=== PATIENT | female | born 1975 | race Caucasian/White ===

== ENCOUNTER 2017-07-08 15:22 | Inpatient (IN) | payer MEDICARE, OTHER ==
[~2017-07-08] VITALS: Ht 160 cm; Wt 110.3 kg
[2017-07-08 15:47] LABS: GLUCOSE,POINT OF CARE 90 MG/DL (70-110)
[2017-07-08] MEDS ORDERED: DIVA500T52 PO (16:01)
[2017-07-08] MEDS ORDERED: BENZ2TAB10 PO (16:01)
[2017-07-08] MEDS ORDERED: FOLI1 PO (16:01)
[2017-07-08] MEDS ORDERED: SIMV-261 PO (16:01)
[2017-07-08] MEDS ORDERED: METO50 PO (16:01)
[2017-07-08] MEDS ORDERED: OS500 PO (16:01)
[2017-07-08] MEDS ORDERED: CLOZ100 PO (16:01)
[2017-07-08 16:50] LABS: BASOPHILS % (AUTO) 0.5 % (0.0-2.0); EOSINOPHILS % (AUTO) 0.6 % (1.0-6.0); HEMATOCRIT 39.1 % (36-46); HEMOGLOBIN 13.3 g/dL (12.0-16.0); LYMPHOCYTES # (AUTO) 4.2 K/uL (1.0-4.8); LYMPHOCYTES % (AUTO) 37.9 % (22.0-44.0); MEAN CORPUSCULAR HEMOGLOBIN 31.6 pg (26.0-34.0); MEAN CORPUSCULAR VOLUME 93 fL (80-100); MONOCYTES # (AUTO) 0.8 K/uL (0.1-1.0); MONOCYTES % (AUTO) 7.2 % (2.0-9.0); NEUTROPHILS % (AUTO) 53.8 % (40.0-70.0); PLATELET COUNT (AUTO) 342 K/uL (150-450); RED BLOOD CELL COUNT(AUTO) 4.21 MIL/uL (4.00-5.20); RED CELL DISTRIBUTION WIDTH 13.4 % (11.5-14.5); WHITE BLOOD COUNT (AUTO) 11.1 K/uL (4.5-11.0)
[2017-07-08 16:59] LABS: CALCIUM, TOTAL 9.4 mg/dL (8.8-10.5); CREATININE 1.02 mg/dL (0.60-1.30); POTASSIUM 4.2 mmol/L (3.5-5.1)
[2017-07-08 17:05] LABS: ALBUMIN 3.5 g/dL (3.4-5.0); BILIRUBIN,TOTAL 0.4 mg/dL (0.1-1.0); TOTAL PROTEIN, SERUM 7.1 g/dL (6.4-8.2)
[2017-07-08] MEDS ORDERED: SODIUM CHLORIDE 0.9% 1,000 ML IV ONE (18:15)
[2017-07-08 18:34] LABS: APPEARANCE,URINE CLOUDY (CLEAR); GLUCOSE, URINE (UA) NEGATIVE (NEGATIVE); KETONES,URINE 15 mg/dL (NEGATIVE); OCCULT BLOOD,URINE NEGATIVE (NEGATIVE); PROTEIN,URINE NEGATIVE (NEGATIVE)
[2017-07-08 18:47] LABS: ADD UA MICROSCOPIC YES; LEUKOCYTE ESTERASE ,URINE TRACE (NEGATIVE); RBC,URINE None Seen /HPF (0-2)
[2017-07-08 18:48] LABS: SQUAMOUS EPITHELIAL CELL,UR Moderate /LPF (None Seen)
[2017-07-08] MEDS ORDERED: ONDANSETRON HCL 4 MG/2 ML VIAL IVP PRN (19:00)
[2017-07-08] MEDS ORDERED: 0.9% SODIUM CHLORIDE 10 ML SYRINGE IVP PRN (19:00)
[2017-07-08] MEDS ORDERED: ACETAMINOPHEN 325 MG TABLET PO PRN (19:00)
[2017-07-08] MEDS ORDERED: CIPROFLOXACIN 400 MG/D5% WATER 200 ML IV ONE (20:30)
[2017-07-08 21:20] VITALS: BP 104/68
[2017-07-08] MEDS ORDERED: SODIUM CHLORIDE 0.9% 500 ML IV ONE (21:26)
[2017-07-08 23:17] VITALS: BP 112/57
[2017-07-09 05:28] VITALS: BP 120/72
[2017-07-09 07:22] VITALS: BP 109/55
[2017-07-09 11:17] VITALS: BP 122/69
[2017-07-09] MEDS ORDERED: DOCU250C91 PO (12:47)
[2017-07-09] MEDS ORDERED: ADV100 IH (12:47)
[2017-07-09] MEDS ORDERED: TOLT4CAP13 PO (12:47)
[2017-07-09 15:30] VITALS: BP 107/65
[2017-07-09] MEDS ORDERED: OxyCODONE HCL/ACETAMINOPHEN 5-325 MG TABLET PO PRN ×2 (19:30)
[2017-07-09] MEDS ORDERED: 0.9% SODIUM CHLORIDE 10 ML SYRINGE IVP PRN (19:30)
[2017-07-09 19:48] VITALS: BP 119/68
[2017-07-09] MEDS: DOCUSATE SODIUM 100 MG CAPSULE PO SCH (20:50)
[2017-07-09] MEDS: CefTRIAXone 1 GM/DEXTROSE 50 ML IV SCH (20:50)
[2017-07-09] MEDS: PANTOPRAZOLE SODIUM 40 MG/VIAL IVP SCH (20:50)
[2017-07-09 23:19] VITALS: BP 117/69
[2017-07-10 04:48] VITALS: BP 115/59
[2017-07-10 06:50] LABS: ANION GAP 10 mmol/L (8-16); CALCIUM, TOTAL 8.6 mg/dL (8.8-10.5); CARBON DIOXIDE 26 mmol/L (22-29); CHLORIDE 104 mmol/L (98-107); CREATININE 0.99 mg/dL (0.60-1.30); GLOMERULAR FILTR. RATE CALC > 60 mL/min (>60); POTASSIUM 3.5 mmol/L (3.5-5.1); SODIUM SERUM 140 mmol/L (136-145); UREA NITROGEN, BLOOD 12 mg/dL (7-18)
[2017-07-10 07:05] LABS: BASOPHILS % (AUTO) 0.3 % (0.0-2.0); EOSINOPHILS % (AUTO) 0.8 % (1.0-6.0); HEMATOCRIT 38.5 % (36-46); HEMOGLOBIN 13.1 g/dL (12.0-16.0); LYMPHOCYTES # (AUTO) 3.5 K/uL (1.0-4.8); LYMPHOCYTES % (AUTO) 36.5 % (22.0-44.0); MEAN CORPUSCULAR HGB CONC 34.1 G/dL (31.0-37.0); MEAN CORPUSCULAR VOLUME 94 fL (80-100); MONOCYTES # (AUTO) 0.7 K/uL (0.1-1.0); MONOCYTES % (AUTO) 6.8 % (2.0-9.0); NEUTROPHILS # (AUTO) 5.4 K/uL (1.8-7.7); NEUTROPHILS % (AUTO) 55.6 % (40.0-70.0); PLATELET COUNT (AUTO) 316 K/uL (150-450); RED CELL DISTRIBUTION WIDTH 13.9 % (11.5-14.5); WHITE BLOOD COUNT (AUTO) 9.7 K/uL (4.5-11.0)
[2017-07-10 07:09] VITALS: BP 168/64
[2017-07-10] MEDS: DOCUSATE SODIUM 100 MG CAPSULE PO SCH ×2 (08:12→19:45)
[2017-07-10] MEDS: PANTOPRAZOLE SODIUM 40 MG/VIAL IVP SCH (08:12)
[2017-07-10 11:17] VITALS: BP 119/72
[2017-07-10 16:08] VITALS: BP 112/64
[2017-07-10] MEDS: CefTRIAXone 1 GM/DEXTROSE 50 ML IV SCH (19:46)
[2017-07-10 20:04] VITALS: BP 138/62
[2017-07-11 00:12] VITALS: BP 125/79
[2017-07-11 04:34] VITALS: BP 115/74
[2017-07-11 07:38] VITALS: BP 115/87
[2017-07-11] MEDS: DOCUSATE SODIUM 100 MG CAPSULE PO SCH (08:53)
[2017-07-11] MEDS: PANTOPRAZOLE SODIUM 40 MG/VIAL IVP SCH (08:53)
[2017-07-11 11:10] VITALS: BP 130/56
[2017-07-11 16:56] VITALS: BP 132/69
[2017-07-11] MEDS ORDERED: CEPH500 PO (17:33)
== END 2017-07-11 18:15 | disposition home or self-care (01) | DRG 689 ==
LOC: EMS 15:25 → 6N 19:30 → UNDOADMIN 20:22 → 6N 20:22
PROVIDERS: ADMIT Internal Medicine Geriatric Medicine; ATTEND Internal Medicine Geriatric Medicine
DX: N39.0 Urinary tract infection, site not specified (principal); G93.41 Metabolic encephalopathy; F41.9 Anxiety disorder, unspecified; F31.9 Bipolar disorder, unspecified
CPT/HCPCS: 82962; 87081; 87086; 96360; 96361; 99285; C9113; J0696; J0744; J7040

== ENCOUNTER 2018-01-01 17:28 | Inpatient (IN) | payer MEDICARE, MEDICAID ==
[~2018-01-01] VITALS: Ht 167.6 cm; Wt 103.9 kg
[~2018-01-01 17:28] MED LIST: ADV100 IH; BENZ2TAB10 PO; CEPH500 PO; CLOZ100 PO; DIVA500T52 PO; DOCU250C91 PO; FOLI1 PO; METO50 PO; OS500 PO; SIMV-261 PO; TOLT4CAP13 PO
[2018-01-01 20:12] VITALS: BP 140/60
[2018-01-01 20:51] VITALS: BP 125/76
[2018-01-01] MEDS ORDERED: HALOPERIDOL 5 MG TABLET PO PRN (21:00)
[2018-01-01] MEDS ORDERED: ZOLPIDEM TARTRATE 10 MG TABLET PO PRN (21:00)
[2018-01-02 06:48] VITALS: BP 118/66
[2018-01-02 08:22] LABS: BASOPHILS % (AUTO) 0.3 % (0.0-2.0); EOSINOPHILS % (AUTO) 0.7 % (1.0-6.0); HEMATOCRIT 38.4 % (36-46); LYMPHOCYTES # (AUTO) 2.5 K/uL (1.0-4.8); LYMPHOCYTES % (AUTO) 32.5 % (22.0-44.0); MEAN CORPUSCULAR HEMOGLOBIN 30.1 pg (26.0-34.0); MEAN CORPUSCULAR HGB CONC 33.8 G/dL (31.0-37.0); MEAN CORPUSCULAR VOLUME 89 fL (80-100); MONOCYTES # (AUTO) 0.4 K/uL (0.1-1.0); MONOCYTES % (AUTO) 4.9 % (2.0-9.0); NEUTROPHILS # (AUTO) 4.6 K/uL (1.8-7.7); NEUTROPHILS % (AUTO) 61.6 % (40.0-70.0); PLATELET COUNT (AUTO) 294 K/uL (150-450); RED BLOOD CELL COUNT(AUTO) 4.32 MIL/uL (4.00-5.20); RED CELL DISTRIBUTION WIDTH 13.5 % (11.5-14.5)
[2018-01-02 08:32] LABS: HEMOGLOBIN A1C 5.5 % (4.5-6.2)
[2018-01-02 08:46] LABS: ALANINE AMINOTRANSFERASE 21 U/L (12-78); ALBUMIN 3.5 g/dL (3.4-5.0); ALKALINE PHOSPHATASE 87 U/L (46-116); ANION GAP 11 mmol/L (8-16); ASPARTATE AMINOTRANSFERASE 18 U/L (15-37); BILIRUBIN,TOTAL 0.8 mg/dL (0.1-1.0); CALCIUM, TOTAL 9.1 mg/dL (8.8-10.5); CARBON DIOXIDE 24 mmol/L (22-29); CHLORIDE 106 mmol/L (98-107); CHOL/HDL RATIO 2.9 (3.9-5.7); CHOLESTEROL 100 mg/dL (131-200); CREATININE 0.94 mg/dL (0.60-1.30); FREE T4 (FREE THYROXINE) 1.29 ng/dL (0.76-1.46); GLOMERULAR FILTR. RATE CALC > 60 mL/min (>60); GLUCOSE,RANDOM 78 mg/dL (70-110); HDL CHOLESTEROL 35 mg/dL (40-60); LDL CHOL (CALC.) 43 mg/dL (0-130); SODIUM SERUM 141 mmol/L (136-145); TRIGLYCERIDES 108 mg/dL (15-150); UREA NITROGEN, BLOOD 16 mg/dL (7-18)
[2018-01-02] MEDS: FOLIC ACID 1 MG TABLET PO SCH (09:00)
[2018-01-02] MEDS: DIVALPROEX SODIUM 500 MG ER TABLET PO SCH ×2 (09:00→21:00)
[2018-01-02] MEDS: BENZTROPINE MESYLATE 2 MG TABLET PO SCH ×2 (09:00→21:00)
[2018-01-02] MEDS ORDERED: METOPROLOL TARTRATE 50 MG TABLET PO SCH (09:00)
[2018-01-02] MEDS ORDERED: CloZAPine 100 MG TABLET PO SCH (09:00)
[2018-01-02] MEDS: DOCUSATE SODIUM 250 MG CAPSULE PO SCH ×2 (09:00→17:00)
[2018-01-02] MEDS: FLUTICASONE/VILANTEROL 100-25 MCG/INH INHALER [14] IH SCH (12:30)
[2018-01-02] MEDS: CloZAPine 100 MG TABLET PO SCH (21:00)
[2018-01-02] MEDS ORDERED: SIMVASTATIN 40 MG TABLET PO SCH (21:00)
[2018-01-02] MEDS: SIMVASTATIN 20 MG TABLET PO SCH (21:21)
[2018-01-02 21:38] VITALS: BP 112/76
[2018-01-03 06:28] VITALS: BP 109/67
[2018-01-03 08:22] VITALS: BP 108/54
[2018-01-03] MEDS: CloZAPine 100 MG TABLET PO SCH ×2 (09:00→21:00)
[2018-01-03] MEDS: FOLIC ACID 1 MG TABLET PO SCH (09:00)
[2018-01-03] MEDS: FLUTICASONE/VILANTEROL 100-25 MCG/INH INHALER [14] IH SCH (09:00)
[2018-01-03] MEDS: BENZTROPINE MESYLATE 2 MG TABLET PO SCH ×2 (09:00→21:00)
[2018-01-03] MEDS: METOPROLOL TARTRATE 25 MG TABLET PO SCH (09:00)
[2018-01-03] MEDS: DOCUSATE SODIUM 250 MG CAPSULE PO SCH ×2 (09:00→17:00)
[2018-01-03] MEDS: DIVALPROEX SODIUM 500 MG ER TABLET PO SCH ×2 (09:00→21:00)
[2018-01-03 16:00] VITALS: BP 101/64
[2018-01-03] MEDS: SIMVASTATIN 20 MG TABLET PO SCH (21:00)
[2018-01-04 06:41] VITALS: BP 110/68
[2018-01-04 08:13] VITALS: BP 106/67
[2018-01-04] MEDS: DIVALPROEX SODIUM 500 MG ER TABLET PO SCH ×2 (08:19→21:00)
[2018-01-04] MEDS: CloZAPine 100 MG TABLET PO SCH ×2 (08:19→21:00)
[2018-01-04] MEDS: METOPROLOL TARTRATE 25 MG TABLET PO SCH (08:19)
[2018-01-04] MEDS: BENZTROPINE MESYLATE 2 MG TABLET PO SCH ×2 (08:19→21:00)
[2018-01-04] MEDS: DOCUSATE SODIUM 250 MG CAPSULE PO SCH ×2 (08:19→17:00)
[2018-01-04] MEDS: FOLIC ACID 1 MG TABLET PO SCH (08:19)
[2018-01-04] MEDS: FLUTICASONE/VILANTEROL 100-25 MCG/INH INHALER [14] IH SCH (08:19)
[2018-01-04 16:34] VITALS: BP 121/72
[2018-01-04] MEDS: SIMVASTATIN 20 MG TABLET PO SCH (21:00)
[2018-01-05] MEDS: CloZAPine 100 MG TABLET PO SCH ×2 (08:31→21:03)
[2018-01-05] MEDS: FLUTICASONE/VILANTEROL 100-25 MCG/INH INHALER [14] IH SCH (08:31)
[2018-01-05] MEDS: METOPROLOL TARTRATE 25 MG TABLET PO SCH (08:32)
[2018-01-05] MEDS: DIVALPROEX SODIUM 500 MG ER TABLET PO SCH ×2 (08:32→21:04)
[2018-01-05] MEDS: FOLIC ACID 1 MG TABLET PO SCH (08:32)
[2018-01-05] MEDS: DOCUSATE SODIUM 250 MG CAPSULE PO SCH ×2 (08:32→17:00)
[2018-01-05] MEDS: BENZTROPINE MESYLATE 2 MG TABLET PO SCH ×2 (08:32→21:03)
[2018-01-05] MEDS: SIMVASTATIN 20 MG TABLET PO SCH (21:03)
[2018-01-06 04:08] VITALS: BP 117/65
[2018-01-06] MEDS: BENZTROPINE MESYLATE 2 MG TABLET PO SCH ×2 (08:11→20:58)
[2018-01-06] MEDS: FLUTICASONE/VILANTEROL 100-25 MCG/INH INHALER [14] IH SCH (08:11)
[2018-01-06] MEDS: DOCUSATE SODIUM 250 MG CAPSULE PO SCH ×2 (08:11→17:00)
[2018-01-06] MEDS: CloZAPine 100 MG TABLET PO SCH ×2 (08:11→20:58)
[2018-01-06] MEDS: FOLIC ACID 1 MG TABLET PO SCH (08:12)
[2018-01-06] MEDS: DIVALPROEX SODIUM 500 MG ER TABLET PO SCH ×2 (08:12→20:58)
[2018-01-06] MEDS: METOPROLOL TARTRATE 25 MG TABLET PO SCH (08:12)
[2018-01-06 08:34] VITALS: BP 148/99
[2018-01-06 16:09] VITALS: BP 114/69
[2018-01-06] MEDS: SIMVASTATIN 20 MG TABLET PO SCH (20:58)
[2018-01-06] MEDS ORDERED: LOPERAMIDE HCL 2 MG CAPSULE PO PRN (22:15)
[2018-01-07 06:28] VITALS: BP 117/68
[2018-01-07 08:27] VITALS: BP 121/80
[2018-01-07] MEDS: DIVALPROEX SODIUM 500 MG ER TABLET PO SCH ×2 (08:54→20:29)
[2018-01-07] MEDS: FOLIC ACID 1 MG TABLET PO SCH (08:54)
[2018-01-07] MEDS: METOPROLOL TARTRATE 25 MG TABLET PO SCH (08:54)
[2018-01-07] MEDS: CloZAPine 100 MG TABLET PO SCH ×2 (08:54→20:30)
[2018-01-07] MEDS: BENZTROPINE MESYLATE 2 MG TABLET PO SCH ×2 (08:56→20:30)
[2018-01-07] MEDS: FLUTICASONE/VILANTEROL 100-25 MCG/INH INHALER [14] IH SCH (08:56)
[2018-01-07] MEDS: DOCUSATE SODIUM 250 MG CAPSULE PO SCH ×2 (09:00→16:53)
[2018-01-07 17:12] VITALS: BP 120/65
[2018-01-07] MEDS: SIMVASTATIN 20 MG TABLET PO SCH (20:30)
[2018-01-08 07:00] VITALS: BP 114/68
[2018-01-08 08:00] VITALS: BP 126/82
[2018-01-08] MEDS: DOCUSATE SODIUM 250 MG CAPSULE PO SCH ×2 (09:00→16:06)
[2018-01-08] MEDS: CloZAPine 100 MG TABLET PO SCH ×2 (09:00→20:18)
[2018-01-08] MEDS: DIVALPROEX SODIUM 500 MG ER TABLET PO SCH ×2 (09:00→20:18)
[2018-01-08] MEDS: BENZTROPINE MESYLATE 2 MG TABLET PO SCH ×2 (09:00→20:18)
[2018-01-08] MEDS: FOLIC ACID 1 MG TABLET PO SCH (09:00)
[2018-01-08] MEDS: METOPROLOL TARTRATE 25 MG TABLET PO SCH (09:01)
[2018-01-08] MEDS: FLUTICASONE/VILANTEROL 100-25 MCG/INH INHALER [14] IH SCH (09:02)
[2018-01-08 16:28] VITALS: BP 121/64
[2018-01-08] MEDS: SIMVASTATIN 20 MG TABLET PO SCH (20:18)
[2018-01-09 07:21] VITALS: BP 119/73
[2018-01-09 08:32] LABS: BASOPHILS % (AUTO) 0.6 % (0.0-2.0); EOSINOPHILS % (AUTO) 4.6 % (1.0-6.0); HEMATOCRIT 40.2 % (36-46); HEMOGLOBIN 13.8 g/dL (12.0-16.0); LYMPHOCYTES # (AUTO) 3.7 K/uL (1.0-4.8); LYMPHOCYTES % (AUTO) 45.6 % (22.0-44.0); MEAN CORPUSCULAR HEMOGLOBIN 30.2 pg (26.0-34.0); MEAN CORPUSCULAR HGB CONC 34.4 G/dL (31.0-37.0); MEAN CORPUSCULAR VOLUME 88 fL (80-100); MONOCYTES # (AUTO) 0.5 K/uL (0.1-1.0); NEUTROPHILS # (AUTO) 3.5 K/uL (1.8-7.7); NEUTROPHILS % (AUTO) 43.2 % (40.0-70.0); PLATELET COUNT (AUTO) 251 K/uL (150-450); RED BLOOD CELL COUNT(AUTO) 4.58 MIL/uL (4.00-5.20); RED CELL DISTRIBUTION WIDTH 14.1 % (11.5-14.5)
[2018-01-09 09:10] VITALS: BP 125/84
[2018-01-09] MEDS: BENZTROPINE MESYLATE 2 MG TABLET PO SCH ×2 (10:01→20:11)
[2018-01-09] MEDS: CloZAPine 100 MG TABLET PO SCH ×2 (10:01→20:11)
[2018-01-09] MEDS: METOPROLOL TARTRATE 25 MG TABLET PO SCH (10:01)
[2018-01-09] MEDS: FOLIC ACID 1 MG TABLET PO SCH (10:01)
[2018-01-09] MEDS: DIVALPROEX SODIUM 500 MG ER TABLET PO SCH ×2 (10:01→20:11)
[2018-01-09] MEDS: FLUTICASONE/VILANTEROL 100-25 MCG/INH INHALER [14] IH SCH (10:01)
[2018-01-09] MEDS: DOCUSATE SODIUM 250 MG CAPSULE PO SCH ×2 (10:01→16:55)
[2018-01-09 16:21] VITALS: BP 121/91
[2018-01-09] MEDS: LORazepam 2 MG TABLET PO PRN (16:55)
[2018-01-09] MEDS: SIMVASTATIN 20 MG TABLET PO SCH (20:11)
[2018-01-10 02:01] VITALS: BP 119/88
[2018-01-10 08:16] VITALS: BP 124/56
[2018-01-10] MEDS: BENZTROPINE MESYLATE 2 MG TABLET PO SCH ×2 (10:32→21:25)
[2018-01-10] MEDS: CloZAPine 100 MG TABLET PO SCH ×2 (10:32→20:50)
[2018-01-10] MEDS: DOCUSATE SODIUM 250 MG CAPSULE PO SCH ×2 (10:32→17:19)
[2018-01-10] MEDS: METOPROLOL TARTRATE 25 MG TABLET PO SCH (10:32)
[2018-01-10] MEDS: DIVALPROEX SODIUM 500 MG ER TABLET PO SCH ×2 (10:33→20:50)
[2018-01-10] MEDS: FOLIC ACID 1 MG TABLET PO SCH (10:33)
[2018-01-10] MEDS: FLUTICASONE/VILANTEROL 100-25 MCG/INH INHALER [14] IH SCH (10:33)
[2018-01-10 16:17] VITALS: BP 113/78
[2018-01-10] MEDS: LORazepam 2 MG TABLET PO PRN (17:19)
[2018-01-10] MEDS: SIMVASTATIN 20 MG TABLET PO SCH (20:51)
[2018-01-11 07:23] VITALS: BP 140/90
[2018-01-11 08:11] VITALS: BP 138/95
[2018-01-11] MEDS: BENZTROPINE MESYLATE 2 MG TABLET PO SCH ×2 (09:35→20:08)
[2018-01-11] MEDS: FLUTICASONE/VILANTEROL 100-25 MCG/INH INHALER [14] IH SCH (09:35)
[2018-01-11] MEDS: FOLIC ACID 1 MG TABLET PO SCH (09:36)
[2018-01-11] MEDS: CloZAPine 100 MG TABLET PO SCH ×2 (09:36→20:08)
[2018-01-11] MEDS: DIVALPROEX SODIUM 500 MG ER TABLET PO SCH ×2 (09:36→20:08)
[2018-01-11] MEDS: METOPROLOL TARTRATE 25 MG TABLET PO SCH (09:36)
[2018-01-11] MEDS: DOCUSATE SODIUM 250 MG CAPSULE PO SCH ×2 (09:36→16:38)
[2018-01-11 16:49] VITALS: BP 116/68
[2018-01-11] MEDS: SIMVASTATIN 20 MG TABLET PO SCH (20:08)
[2018-01-12 04:30] VITALS: BP 136/88
[2018-01-12 08:22] VITALS: BP 141/78
[2018-01-12] MEDS: FLUTICASONE/VILANTEROL 100-25 MCG/INH INHALER [14] IH SCH (08:36)
[2018-01-12] MEDS: METOPROLOL TARTRATE 25 MG TABLET PO SCH (08:36)
[2018-01-12] MEDS: FOLIC ACID 1 MG TABLET PO SCH (08:37)
[2018-01-12] MEDS: DIVALPROEX SODIUM 500 MG ER TABLET PO SCH ×2 (08:37→20:52)
[2018-01-12] MEDS: CloZAPine 100 MG TABLET PO SCH ×2 (08:37→20:52)
[2018-01-12] MEDS: DOCUSATE SODIUM 250 MG CAPSULE PO SCH ×2 (08:37→17:14)
[2018-01-12] MEDS: BENZTROPINE MESYLATE 2 MG TABLET PO SCH ×2 (08:38→20:52)
[2018-01-12 16:28] VITALS: BP 153/95
[2018-01-12] MEDS: LORazepam 2 MG TABLET PO PRN (17:15)
[2018-01-12] MEDS: SIMVASTATIN 20 MG TABLET PO SCH (20:52)
[2018-01-13 07:20] VITALS: BP 126/86
[2018-01-13] MEDS ORDERED: BISACODYL 5 MG EC TABLET PO PRN (09:15)
[2018-01-13 09:27] VITALS: BP 115/67
[2018-01-13] MEDS: DIVALPROEX SODIUM 500 MG ER TABLET PO SCH (09:40)
[2018-01-13] MEDS: BENZTROPINE MESYLATE 2 MG TABLET PO SCH (09:40)
[2018-01-13] MEDS: FOLIC ACID 1 MG TABLET PO SCH (09:40)
[2018-01-13] MEDS: FLUTICASONE/VILANTEROL 100-25 MCG/INH INHALER [14] IH SCH (09:40)
[2018-01-13] MEDS: METOPROLOL TARTRATE 25 MG TABLET PO SCH (09:40)
[2018-01-13] MEDS: CloZAPine 100 MG TABLET PO SCH (09:40)
[2018-01-13] MEDS: DOCUSATE SODIUM 250 MG CAPSULE PO SCH ×2 (09:40→16:44)
[2018-01-13] MEDS ORDERED: FLUT1AER IH (16:22)
[2018-01-13] MEDS ORDERED: CLOZ100 PO (16:22)
[2018-01-13] MEDS ORDERED: DIVA500T52 PO (16:22)
[2018-01-13] MEDS ORDERED: SIMV-260 PO (16:22)
[2018-01-13] MEDS ORDERED: BENZ2TAB10 PO (16:22)
[2018-01-13] MEDS ORDERED: DOCU250C91 PO (16:22)
[2018-01-13] MEDS ORDERED: METO25 PO ×2 (16:44→16:45)
== END 2018-01-13 16:35 | disposition home or self-care (01) | DRG 885 ==
LOC: B3A 19:40
PROVIDERS: ATTEND Psychiatry & Neurology Child & Adolescent Psychiatry
DX: F20.0 Paranoid schizophrenia (principal); E78.5 Hyperlipidemia, unspecified; I10 Essential (primary) hypertension; K59.00 Constipation, unspecified; J44.9 Chronic obstructive pulmonary disease, unspecified; R45.87 Impulsiveness; Z87.891 Personal history of nicotine dependence
CPT/HCPCS: 83036; 84436; 84439

== ENCOUNTER 2018-02-09 16:18 | Emergency (ER) | payer MEDICARE, OTHER ==
[~2018-02-09] VITALS: Ht 160 cm; Wt 98.6 kg
[~2018-02-09 16:18] MED LIST changes: -ADV100 IH; -CEPH500 PO; +FLUT1AER IH; -FOLI1 PO; +METO25 PO; -METO50 PO; -OS500 PO; +SIMV-260 PO; -SIMV-261 PO; -TOLT4CAP13 PO
[2018-02-09 16:48] LABS: GLUCOSE,POINT OF CARE 71 MG/DL (70-110)
[2018-02-09] MEDS ORDERED: VENTOLIN HFA PO (17:39)
[2018-02-09 18:05] LABS: BASOPHILS % (AUTO) 0.7 % (0.0-2.0); EOSINOPHILS % (AUTO) 1.1 % (1.0-6.0); HEMATOCRIT 42.1 % (36-46); HEMOGLOBIN 14.4 g/dL (12.0-16.0); LYMPHOCYTES # (AUTO) 3.9 K/uL (1.0-4.8); LYMPHOCYTES % (AUTO) 36.7 % (22.0-44.0); MEAN CORPUSCULAR HEMOGLOBIN 30.2 pg (26.0-34.0); MEAN CORPUSCULAR HGB CONC 34.3 G/dL (31.0-37.0); MEAN CORPUSCULAR VOLUME 88 fL (80-100); MONOCYTES # (AUTO) 0.7 K/uL (0.1-1.0); MONOCYTES % (AUTO) 6.8 % (2.0-9.0); NEUTROPHILS # (AUTO) 5.8 K/uL (1.8-7.7); NEUTROPHILS % (AUTO) 54.7 % (40.0-70.0); PLATELET COUNT (AUTO) 330 K/uL (150-450); RED BLOOD CELL COUNT(AUTO) 4.78 MIL/uL (4.00-5.20); RED CELL DISTRIBUTION WIDTH 14.4 % (11.5-14.5)
[2018-02-09 18:20] LABS: ANION GAP 9 mmol/L (8-16); CALCIUM, TOTAL 9.1 mg/dL (8.8-10.5); CARBON DIOXIDE 26 mmol/L (22-29); CHLORIDE 105 mmol/L (98-107); CREATININE 0.98 mg/dL (0.60-1.30); GLOMERULAR FILTR. RATE CALC > 60 mL/min (>60); GLUCOSE,RANDOM 83 mg/dL (70-110); POTASSIUM 4.6 mmol/L (3.5-5.1); SODIUM SERUM 140 mmol/L (136-145); UREA NITROGEN, BLOOD 23 mg/dL (7-18)
[2018-02-09 18:27] LABS: ALANINE AMINOTRANSFERASE 26 U/L (12-78); ALBUMIN 3.4 g/dL (3.4-5.0); ALKALINE PHOSPHATASE 89 U/L (46-116); ASPARTATE AMINOTRANSFERASE 20 U/L (15-37); BILIRUBIN,TOTAL 0.6 mg/dL (0.1-1.0); CREATINE KINASE, TOTAL 53 U/L (26-192); TOTAL PROTEIN, SERUM 7.6 g/dL (6.4-8.2); VALPROIC ACID 45 mcg/mL (50-100)
[2018-02-09 18:29] LABS: TROPONIN I < 0.02 ng/mL (0.00-0.05)
[2018-02-09 18:38] LABS: AMMONIA < 10 umol/L (11-32)
[2018-02-09 21:00] VITALS: BP 119/67
[2018-02-09 21:04] LABS: APPEARANCE,URINE CLEAR (CLEAR); BILIRUBIN,URINE NEGATIVE (NEGATIVE); GLUCOSE, URINE (UA) NEGATIVE (NEGATIVE); KETONES,URINE NEGATIVE (NEGATIVE); LEUKOCYTE ESTERASE ,URINE NEGATIVE (NEGATIVE); NITRATE,URINE NEGATIVE (NEGATIVE); OCCULT BLOOD,URINE NEGATIVE (NEGATIVE); PROTEIN,URINE NEGATIVE (NEGATIVE); UROBILINOGEN,URINE 0.2 mg/dL (<=1.0)
[2018-02-09 21:09] LABS: AMPHET/METH SCREEN,URINE NEGATIVE (NEGATIVE); BARBITURATE SCREEN, URINE NEGATIVE (NEGATIVE); BENZODIAZEPINES SCREEN,URINE NEGATIVE (NEGATIVE); CANNABINOID SCREEN,URINE NEGATIVE (NEGATIVE); COCAINE SCREEN,URINE NEGATIVE (NEGATIVE); METHADONE SCREEN, URINE NEGATIVE (NEGATIVE); OPIATE SCREEN,URINE NEGATIVE (NEGATIVE)
[2018-02-09 21:13] LABS: PHENCYCLIDINE SCREEN,URINE NEGATIVE (NEGATIVE)
== END 2018-02-09 22:29 | disposition home or self-care (01) ==
LOC: EMS 16:19
DX: G20 Parkinson's disease (principal); E78.00 Pure hypercholesterolemia, unspecified; I10 Essential (primary) hypertension; F41.9 Anxiety disorder, unspecified; F31.9 Bipolar disorder, unspecified
CPT/HCPCS: 99285

== ENCOUNTER 2018-04-08 13:45 | Inpatient (IN) | payer MEDICARE, MEDICAID ==
[~2018-04-08 13:45] MED LIST changes: +VENTOLIN HFA PO
[2018-04-08] MEDS ORDERED: ZOLPIDEM TARTRATE 10 MG TABLET PO PRN (16:45)
[2018-04-08] MEDS ORDERED: LORazepam 2 MG TABLET PO PRN (16:45)
[2018-04-08] MEDS ORDERED: HALOPERIDOL 5 MG TABLET PO PRN (16:45)
[2018-04-08 16:46] VITALS: BP 123/72
[2018-04-08 17:30] VITALS: BP 127/78
[2018-04-08] MEDS ORDERED: ALBUTEROL SULFATE HFA 90 MCG/PUFF 8 GM INHALER IH PRN (20:00)
[2018-04-08] MEDS ORDERED: PNEUMOCOCCAL VACCINE POLYVALENT 0.5 ML VIAL [PPSV23] IM ONE (20:45)
[2018-04-08] MEDS: FLUTICASONE/VILANTEROL 100-25 MCG/INH INHALER [14] IH SCH (22:06)
[2018-04-09 02:59] VITALS: BP 105/60
[2018-04-09 08:53] VITALS: BP 135/75
[2018-04-09] MEDS: SIMVASTATIN 20 MG TABLET PO SCH (09:06)
[2018-04-09] MEDS: METOPROLOL TARTRATE 25 MG TABLET PO SCH (09:06)
[2018-04-09 16:44] VITALS: BP 106/60
[2018-04-09] MEDS: DIVALPROEX SODIUM 500 MG ER TABLET PO SCH (20:32)
[2018-04-09] MEDS: FLUTICASONE/VILANTEROL 100-25 MCG/INH INHALER [14] IH SCH (20:32)
[2018-04-10 06:53] VITALS: BP 122/68
[2018-04-10] MEDS: METOPROLOL TARTRATE 25 MG TABLET PO SCH (08:44)
[2018-04-10] MEDS: DIVALPROEX SODIUM 500 MG ER TABLET PO SCH ×2 (08:44→20:41)
[2018-04-10] MEDS: SIMVASTATIN 20 MG TABLET PO SCH (08:44)
[2018-04-10 08:55] VITALS: BP 129/72
[2018-04-10 09:14] LABS: BASOPHILS % (AUTO) 0.4 % (0.0-2.0); EOSINOPHILS % (AUTO) 0.5 % (1.0-6.0); HEMATOCRIT 40.8 % (36-46); LYMPHOCYTES # (AUTO) 3.3 K/uL (1.0-4.8); LYMPHOCYTES % (AUTO) 32.7 % (22.0-44.0); MEAN CORPUSCULAR HGB CONC 34.4 G/dL (31.0-37.0); MEAN CORPUSCULAR VOLUME 90 fL (80-100); MONOCYTES # (AUTO) 0.7 K/uL (0.1-1.0); MONOCYTES % (AUTO) 6.7 % (2.0-9.0); NEUTROPHILS # (AUTO) 6.1 K/uL (1.8-7.7); NEUTROPHILS % (AUTO) 59.7 % (40.0-70.0); PLATELET COUNT (AUTO) 314 K/uL (150-450); RED BLOOD CELL COUNT(AUTO) 4.52 MIL/uL (4.00-5.20); RED CELL DISTRIBUTION WIDTH 14.5 % (11.5-14.5)
[2018-04-10 09:17] LABS: HEMOGLOBIN A1C 5.2 % (4.5-6.2)
[2018-04-10 09:53] LABS: ALANINE AMINOTRANSFERASE 26 U/L (12-78); ALBUMIN 3.6 g/dL (3.4-5.0); ALKALINE PHOSPHATASE 81 U/L (46-116); ANION GAP 12 mmol/L (8-16); ASPARTATE AMINOTRANSFERASE 13 U/L (15-37); BILIRUBIN,TOTAL 0.6 mg/dL (0.1-1.0); CARBON DIOXIDE 24 mmol/L (22-29); CHLORIDE 102 mmol/L (98-107); CHOL/HDL RATIO 4.6 (3.9-5.7); CHOLESTEROL 153 mg/dL (131-200); CREATININE 0.88 mg/dL (0.60-1.30); FREE T4 (FREE THYROXINE) 1.47 ng/dL (0.76-1.46); GLOMERULAR FILTR. RATE CALC > 60 mL/min (>60); GLUCOSE,RANDOM 74 mg/dL (70-110); HCG,QUANTITATIVE < 1 mIU/mL (0-6); HDL CHOLESTEROL 33 mg/dL (40-60); LDL CHOL (CALC.) 81 mg/dL (0-130); POTASSIUM 4.1 mmol/L (3.5-5.1); SODIUM SERUM 138 mmol/L (136-145); THYROID STIMULATING HORMONE 2.12 uIU/mL (0.36-3.74); TRIGLYCERIDES 194 mg/dL (15-150); UREA NITROGEN, BLOOD 23 mg/dL (7-18)
[2018-04-10] MEDS: FLUTICASONE/VILANTEROL 100-25 MCG/INH INHALER [14] IH SCH (20:33)
[2018-04-10] MEDS: CloZAPine 100 MG TABLET PO SCH (20:33)
[2018-04-11 08:28] VITALS: BP 103/60
[2018-04-11] MEDS: DIVALPROEX SODIUM 500 MG ER TABLET PO SCH ×2 (08:48→20:17)
[2018-04-11] MEDS: MULTIVITAMINS WITH IRON TABLET PO SCH (08:48)
[2018-04-11] MEDS: CloZAPine 100 MG TABLET PO SCH ×2 (08:48→20:17)
[2018-04-11] MEDS: SIMVASTATIN 20 MG TABLET PO SCH (08:48)
[2018-04-11] MEDS: METOPROLOL TARTRATE 25 MG TABLET PO SCH (08:55)
[2018-04-11 16:19] VITALS: BP 105/67
[2018-04-11] MEDS: FLUTICASONE/VILANTEROL 100-25 MCG/INH INHALER [14] IH SCH (20:18)
[2018-04-12 06:42] VITALS: BP 110/64
[2018-04-12 08:26] VITALS: BP 125/78
[2018-04-12] MEDS: DIVALPROEX SODIUM 500 MG ER TABLET PO SCH ×2 (08:48→20:24)
[2018-04-12] MEDS: SIMVASTATIN 20 MG TABLET PO SCH (08:48)
[2018-04-12] MEDS: METOPROLOL TARTRATE 25 MG TABLET PO SCH (08:48)
[2018-04-12] MEDS: CloZAPine 100 MG TABLET PO SCH ×2 (08:49→20:24)
[2018-04-12] MEDS: MULTIVITAMINS WITH IRON TABLET PO SCH (08:49)
[2018-04-12 16:10] VITALS: BP 116/73
[2018-04-12] MEDS: FLUTICASONE/VILANTEROL 100-25 MCG/INH INHALER [14] IH SCH (20:24)
[2018-04-13 01:49] VITALS: BP 139/66
[2018-04-13 08:33] VITALS: BP 116/68
[2018-04-13] MEDS: MULTIVITAMINS WITH IRON TABLET PO SCH (08:49)
[2018-04-13] MEDS: SIMVASTATIN 20 MG TABLET PO SCH (08:49)
[2018-04-13] MEDS: CloZAPine 100 MG TABLET PO SCH ×2 (08:49→20:43)
[2018-04-13] MEDS: DIVALPROEX SODIUM 500 MG ER TABLET PO SCH ×2 (08:49→20:43)
[2018-04-13] MEDS: METOPROLOL TARTRATE 25 MG TABLET PO SCH (08:49)
[2018-04-13 10:10] LABS: APPEARANCE,URINE CLEAR (CLEAR); BILIRUBIN,URINE NEGATIVE (NEGATIVE); GLUCOSE, URINE (UA) NEGATIVE (NEGATIVE); KETONES,URINE 15 mg/dL (NEGATIVE); LEUKOCYTE ESTERASE ,URINE NEGATIVE (NEGATIVE); NITRATE,URINE NEGATIVE (NEGATIVE); OCCULT BLOOD,URINE NEGATIVE (NEGATIVE); PROTEIN,URINE TRACE (NEGATIVE)
[2018-04-13 10:32] LABS: BACTERIA,URINE None Seen /HPF (None Seen); SQUAMOUS EPITHELIAL CELL,UR Rare /LPF (None Seen)
[2018-04-13 10:33] LABS: CALCIUM OXALATE CRYSTALS,UR Few /LPF (None Seen); RBC,URINE None Seen /HPF (0-2); WBC,URINE 0-2 /HPF (0-5)
[2018-04-13 16:08] VITALS: BP 103/68
[2018-04-13] MEDS: FLUTICASONE/VILANTEROL 100-25 MCG/INH INHALER [14] IH SCH (20:43)
[2018-04-14 06:12] VITALS: BP 110/68
[2018-04-14 08:28] VITALS: BP 119/80
[2018-04-14] MEDS: DIVALPROEX SODIUM 500 MG ER TABLET PO SCH ×2 (08:38→20:57)
[2018-04-14] MEDS: METOPROLOL TARTRATE 25 MG TABLET PO SCH (08:38)
[2018-04-14] MEDS: MULTIVITAMINS WITH IRON TABLET PO SCH (08:38)
[2018-04-14] MEDS: SIMVASTATIN 20 MG TABLET PO SCH (08:39)
[2018-04-14] MEDS: CloZAPine 100 MG TABLET PO SCH ×2 (08:39→20:57)
[2018-04-14 16:17] VITALS: BP 114/71
[2018-04-14] MEDS: FLUTICASONE/VILANTEROL 100-25 MCG/INH INHALER [14] IH SCH (20:57)
[2018-04-15 06:53] VITALS: BP 120/81
[2018-04-15 08:10] VITALS: BP 125/75
[2018-04-15] MEDS: MULTIVITAMINS WITH IRON TABLET PO SCH (08:29)
[2018-04-15] MEDS: DIVALPROEX SODIUM 500 MG ER TABLET PO SCH ×2 (08:29→20:33)
[2018-04-15] MEDS: CloZAPine 100 MG TABLET PO SCH ×2 (08:29→20:33)
[2018-04-15] MEDS: METOPROLOL TARTRATE 25 MG TABLET PO SCH (08:29)
[2018-04-15] MEDS: SIMVASTATIN 20 MG TABLET PO SCH (08:29)
[2018-04-15 16:18] VITALS: BP 111/62
[2018-04-15] MEDS: FLUTICASONE/VILANTEROL 100-25 MCG/INH INHALER [14] IH SCH (20:33)
[2018-04-16 06:23] VITALS: BP 120/81
[2018-04-16 08:11] VITALS: BP 104/68
[2018-04-16] MEDS: MULTIVITAMINS WITH IRON TABLET PO SCH (08:16)
[2018-04-16] MEDS: SIMVASTATIN 20 MG TABLET PO SCH (08:16)
[2018-04-16] MEDS: DIVALPROEX SODIUM 500 MG ER TABLET PO SCH ×2 (08:16→20:36)
[2018-04-16] MEDS: CloZAPine 100 MG TABLET PO SCH ×2 (08:16→20:36)
[2018-04-16] MEDS: METOPROLOL TARTRATE 25 MG TABLET PO SCH (08:16)
[2018-04-16 16:05] VITALS: BP 115/75
[2018-04-16] MEDS: FLUTICASONE/VILANTEROL 100-25 MCG/INH INHALER [14] IH SCH (20:36)
[2018-04-17 02:46] VITALS: BP 119/76
[2018-04-17] MEDS: SIMVASTATIN 20 MG TABLET PO SCH (08:12)
[2018-04-17] MEDS: DIVALPROEX SODIUM 500 MG ER TABLET PO SCH ×2 (08:12→20:07)
[2018-04-17] MEDS: METOPROLOL TARTRATE 25 MG TABLET PO SCH (08:12)
[2018-04-17] MEDS: MULTIVITAMINS WITH IRON TABLET PO SCH (08:12)
[2018-04-17] MEDS: CloZAPine 100 MG TABLET PO SCH ×2 (08:12→20:07)
[2018-04-17 08:19] VITALS: BP 121/75
[2018-04-17 16:06] VITALS: BP 123/75
[2018-04-17] MEDS: FLUTICASONE/VILANTEROL 100-25 MCG/INH INHALER [14] IH SCH (20:08)
[2018-04-18 01:12] VITALS: BP 116/69
[2018-04-18 08:17] LABS: BASOPHILS % (AUTO) 0.3 % (0.0-2.0); HEMATOCRIT 39.9 % (36-46); HEMOGLOBIN 13.4 g/dL (12.0-16.0); LYMPHOCYTES # (AUTO) 4.5 K/uL (1.0-4.8); LYMPHOCYTES % (AUTO) 47.7 % (22.0-44.0); MEAN CORPUSCULAR HEMOGLOBIN 30.8 pg (26.0-34.0); MEAN CORPUSCULAR HGB CONC 33.6 G/dL (31.0-37.0); MEAN CORPUSCULAR VOLUME 92 fL (80-100); MONOCYTES # (AUTO) 0.6 K/uL (0.1-1.0); MONOCYTES % (AUTO) 6.2 % (2.0-9.0); NEUTROPHILS # (AUTO) 3.8 K/uL (1.8-7.7); NEUTROPHILS % (AUTO) 39.8 % (40.0-70.0); PLATELET COUNT (AUTO) 252 K/uL (150-450); RED BLOOD CELL COUNT(AUTO) 4.36 MIL/uL (4.00-5.20); RED CELL DISTRIBUTION WIDTH 14.6 % (11.5-14.5)
[2018-04-18] MEDS: MULTIVITAMINS WITH IRON TABLET PO SCH (08:17)
[2018-04-18] MEDS: SIMVASTATIN 20 MG TABLET PO SCH (08:17)
[2018-04-18] MEDS: CloZAPine 100 MG TABLET PO SCH ×2 (08:17→20:31)
[2018-04-18] MEDS: METOPROLOL TARTRATE 25 MG TABLET PO SCH (08:17)
[2018-04-18] MEDS: DIVALPROEX SODIUM 500 MG ER TABLET PO SCH ×2 (08:17→20:31)
[2018-04-18 08:18] VITALS: BP 115/80
[2018-04-18 08:39] LABS: ALANINE AMINOTRANSFERASE 18 U/L (12-78); ALBUMIN 3.1 g/dL (3.4-5.0); ALKALINE PHOSPHATASE 64 U/L (46-116); ANION GAP 8 mmol/L (8-16); ASPARTATE AMINOTRANSFERASE 14 U/L (15-37); BILIRUBIN,TOTAL 0.3 mg/dL (0.1-1.0); CALCIUM, TOTAL 9.1 mg/dL (8.8-10.5); CARBON DIOXIDE 28 mmol/L (22-29); CHLORIDE 105 mmol/L (98-107); CREATINE KINASE, TOTAL 36 U/L (26-192); CREATININE 0.92 mg/dL (0.60-1.30); GLOMERULAR FILTR. RATE CALC > 60 mL/min (>60); GLUCOSE,RANDOM 89 mg/dL (70-110); POTASSIUM 4.2 mmol/L (3.5-5.1); SODIUM SERUM 141 mmol/L (136-145); TOTAL PROTEIN, SERUM 6.5 g/dL (6.4-8.2); UREA NITROGEN, BLOOD 15 mg/dL (7-18)
[2018-04-18] MEDS ORDERED: PERMETHRIN 1% 60 ML LOTION TP ONE (09:15)
[2018-04-18 16:00] VITALS: BP 114/81
[2018-04-18] MEDS: FLUTICASONE/VILANTEROL 100-25 MCG/INH INHALER [14] IH SCH (20:30)
[2018-04-19 01:19] VITALS: BP 119/64
[2018-04-19 08:23] VITALS: BP 127/88
[2018-04-19] MEDS: METOPROLOL TARTRATE 25 MG TABLET PO SCH (08:31)
[2018-04-19] MEDS: SIMVASTATIN 20 MG TABLET PO SCH (08:31)
[2018-04-19] MEDS: CloZAPine 100 MG TABLET PO SCH ×2 (08:31→21:56)
[2018-04-19] MEDS: MULTIVITAMINS WITH IRON TABLET PO SCH (08:31)
[2018-04-19] MEDS: DIVALPROEX SODIUM 500 MG ER TABLET PO SCH ×2 (08:31→21:56)
[2018-04-19] MEDS ORDERED: PERMETHRIN 1% 60 ML LOTION TP ONE (13:45)
[2018-04-19 16:00] VITALS: BP 110/70
[2018-04-19] MEDS: FLUTICASONE/VILANTEROL 100-25 MCG/INH INHALER [14] IH SCH (20:58)
[2018-04-19] MEDS ORDERED: PIPERONYL BUTOXIDE/PYRETHRINS 120 ML SHAMPOO TP ONE (21:00)
[2018-04-20 06:09] VITALS: BP 103/65
[2018-04-20 08:08] VITALS: BP 121/77
[2018-04-20] MEDS: CloZAPine 100 MG TABLET PO SCH ×2 (08:52→20:33)
[2018-04-20] MEDS: SIMVASTATIN 20 MG TABLET PO SCH (08:52)
[2018-04-20] MEDS: DIVALPROEX SODIUM 500 MG ER TABLET PO SCH ×2 (08:52→20:32)
[2018-04-20] MEDS: MULTIVITAMINS WITH IRON TABLET PO SCH (08:52)
[2018-04-20] MEDS: METOPROLOL TARTRATE 25 MG TABLET PO SCH (08:52)
[2018-04-20 16:05] VITALS: BP 116/81
[2018-04-20] MEDS: FLUTICASONE/VILANTEROL 100-25 MCG/INH INHALER [14] IH SCH (20:32)
[2018-04-21 00:48] VITALS: BP 124/77
[2018-04-21 02:23] VITALS: BP 105/62
[2018-04-21] MEDS: MULTIVITAMINS WITH IRON TABLET PO SCH (08:14)
[2018-04-21] MEDS: METOPROLOL TARTRATE 25 MG TABLET PO SCH (08:14)
[2018-04-21] MEDS: SIMVASTATIN 20 MG TABLET PO SCH (08:14)
[2018-04-21] MEDS: CloZAPine 100 MG TABLET PO SCH ×2 (08:15→20:29)
[2018-04-21] MEDS: DIVALPROEX SODIUM 500 MG ER TABLET PO SCH ×2 (08:15→20:29)
[2018-04-21 08:24] VITALS: BP 114/70
[2018-04-21 16:20] VITALS: BP 127/84
[2018-04-21] MEDS: FLUTICASONE/VILANTEROL 100-25 MCG/INH INHALER [14] IH SCH (20:29)
[2018-04-22 08:11] VITALS: BP 112/73
[2018-04-22] MEDS: MULTIVITAMINS WITH IRON TABLET PO SCH (08:18)
[2018-04-22] MEDS: METOPROLOL TARTRATE 25 MG TABLET PO SCH (08:18)
[2018-04-22] MEDS: SIMVASTATIN 20 MG TABLET PO SCH (08:18)
[2018-04-22] MEDS: DIVALPROEX SODIUM 500 MG ER TABLET PO SCH ×2 (08:18→19:55)
[2018-04-22] MEDS: CloZAPine 100 MG TABLET PO SCH ×2 (08:19→19:55)
[2018-04-22 16:13] VITALS: BP 113/71
[2018-04-22] MEDS: FLUTICASONE/VILANTEROL 100-25 MCG/INH INHALER [14] IH SCH (19:54)
[2018-04-23 00:30] VITALS: BP 103/60
[2018-04-23 08:00] VITALS: BP 116/76
[2018-04-23] MEDS: DIVALPROEX SODIUM 500 MG ER TABLET PO SCH ×2 (08:08→20:39)
[2018-04-23] MEDS: SIMVASTATIN 20 MG TABLET PO SCH (08:08)
[2018-04-23] MEDS: METOPROLOL TARTRATE 25 MG TABLET PO SCH (08:08)
[2018-04-23] MEDS: CloZAPine 100 MG TABLET PO SCH ×2 (08:08→20:39)
[2018-04-23] MEDS: MULTIVITAMINS WITH IRON TABLET PO SCH (08:08)
[2018-04-23 16:04] VITALS: BP 114/71
[2018-04-23] MEDS: FLUTICASONE/VILANTEROL 100-25 MCG/INH INHALER [14] IH SCH (20:39)
[2018-04-23] MEDS ORDERED: CLOZ100 PO (22:13)
[2018-04-24 06:27] VITALS: BP 128/88
[2018-04-24] MEDS: MULTIVITAMINS WITH IRON TABLET PO SCH (08:14)
[2018-04-24] MEDS: DIVALPROEX SODIUM 500 MG ER TABLET PO SCH (08:14)
[2018-04-24] MEDS: CloZAPine 100 MG TABLET PO SCH (08:14)
[2018-04-24] MEDS: SIMVASTATIN 20 MG TABLET PO SCH (08:14)
[2018-04-24] MEDS: METOPROLOL TARTRATE 25 MG TABLET PO SCH (08:14)
[2018-04-24 08:16] VITALS: BP 117/73
[2018-04-24] MEDS ORDERED: SIMV-260 PO (08:55)
[2018-04-24] MEDS ORDERED: CLOZ100 PO (08:55)
== END 2018-04-24 13:25 | disposition home or self-care (01) | DRG 885 ==
LOC: B2X 17:32
PROVIDERS: ADMIT Psychiatry & Neurology Psychiatry; ATTEND Psychiatry & Neurology Psychiatry
DX: F20.0 Paranoid schizophrenia (principal); E78.5 Hyperlipidemia, unspecified; E78.1 Pure hyperglyceridemia; G20 Parkinson's disease; I10 Essential (primary) hypertension; J45.909 Unspecified asthma, uncomplicated; R79.89 Other specified abnormal findings of blood chemistry; E66.9 Obesity, unspecified
CPT/HCPCS: 80074; 83036; 83735; 84439; 84443

== ENCOUNTER → 2019-04-27 | Outpatient (CLI) | payer MEDICARE, OTHER ==
[~2019-04-27] MED LIST changes: -BENZ2TAB10 PO; -DOCU250C91 PO; -VENTOLIN HFA PO
[2019-04-27 16:36] LABS: ALANINE AMINOTRANSFERASE 14 U/L (12-78); ALBUMIN 3.6 g/dL (3.4-5.0); ALKALINE PHOSPHATASE 83 U/L (46-116); ANION GAP 9 mmol/L (8-16); ASPARTATE AMINOTRANSFERASE 11 U/L (15-37); BILIRUBIN,TOTAL 0.4 mg/dL (0.1-1.0); CALCIUM, TOTAL 9.5 mg/dL (8.8-10.5); CARBON DIOXIDE 26 mmol/L (22-29); CHLORIDE 107 mmol/L (98-107); CHOL/HDL RATIO 3.7 (3.9-5.7); CHOLESTEROL 166 mg/dL (131-200); CREATININE 0.84 mg/dL (0.60-1.30); GLOMERULAR FILTR. RATE CALC > 60 mL/min (>60); GLUCOSE,RANDOM 90 mg/dL (70-110); HDL CHOLESTEROL 45 mg/dL (40-60); LDL CHOL (CALC.) 94 mg/dL (0-130); POTASSIUM 5.6 mmol/L (3.5-5.1); SODIUM SERUM 142 mmol/L (136-145); TRIGLYCERIDES 133 mg/dL (15-150); UREA NITROGEN, BLOOD 19 mg/dL (7-18); VALPROIC ACID 62 mcg/mL (50-100)
== END | disposition home or self-care (01) ==
LOC: LABMN 09:30
PROVIDERS: ATTEND Psychiatry & Neurology Psychiatry
DX: F20.9 Schizophrenia, unspecified (principal); I10 Essential (primary) hypertension; Z79.899 Other long term (current) drug therapy
CPT/HCPCS: 80159

== ENCOUNTER 2019-11-15 10:13 | Emergency (ER) | payer MEDICARE, OTHER ==
[~2019-11-15] VITALS: Ht 160 cm; Wt 106.6 kg
[2019-11-15] MEDS ORDERED: MECLIZINE HCL 25 MG TABLET PO ONE (11:00)
[2019-11-15] MEDS ORDERED: ACETAMINOPHEN 500 MG TABLET PO ONE (11:00)
[2019-11-15] MEDS: ONDANSETRON HCL 4 MG/2 ML VIAL IM ONE ×2 (11:09→11:20)
[2019-11-15 11:40] LABS: BASOPHILS % (AUTO) 0.4 % (0.0-2.0); EOSINOPHILS % (AUTO) 0.6 % (1.0-6.0); HEMATOCRIT 40.4 % (36-46); HEMOGLOBIN 13.5 g/dL (12.0-16.0); LYMPHOCYTES # (AUTO) 1.3 K/uL (1.0-4.8); LYMPHOCYTES % (AUTO) 22.2 % (22.0-44.0); MEAN CORPUSCULAR HEMOGLOBIN 30.2 pg (26.0-34.0); MEAN CORPUSCULAR HGB CONC 33.5 G/dL (31.0-37.0); MEAN CORPUSCULAR VOLUME 90 fL (80-100); MONOCYTES # (AUTO) 0.7 K/uL (0.1-1.0); MONOCYTES % (AUTO) 12.3 % (2.0-9.0); NEUTROPHILS # (AUTO) 3.7 K/uL (1.8-7.7); NEUTROPHILS % (AUTO) 64.5 % (40.0-70.0); PLATELET COUNT (AUTO) 235 K/uL (150-450); RED BLOOD CELL COUNT(AUTO) 4.47 MIL/uL (4.00-5.20); RED CELL DISTRIBUTION WIDTH 14.9 % (11.5-14.5)
[2019-11-15 11:53] LABS: CALCIUM, TOTAL 8.5 mg/dL (8.8-10.5); CREATININE 1.06 mg/dL (0.60-1.30); POTASSIUM 4.1 mmol/L (3.5-5.1)
[2019-11-15 12:00] LABS: BILIRUBIN,TOTAL 0.5 mg/dL (0.1-1.0); TOTAL PROTEIN, SERUM 6.8 g/dL (6.4-8.2)
[2019-11-15 13:00] VITALS: BP 103/73
== END 2019-11-15 13:10 | disposition home or self-care (01) ==
LOC: EMS 10:16
DX: R07.89 Other chest pain (principal); R42 Dizziness and giddiness; F20.0 Paranoid schizophrenia; F41.9 Anxiety disorder, unspecified; F31.9 Bipolar disorder, unspecified; I10 Essential (primary) hypertension; E78.00 Pure hypercholesterolemia, unspecified
CPT/HCPCS: 36415; 80053; 80164; 84484; 85025; 93005; 99284; J2405

== ENCOUNTER 2020-03-08 11:45 | Emergency (ER) | payer MEDICARE, OTHER ==
[~2020-03-08] VITALS: Ht 160 cm; Wt 111.4 kg
[~2020-03-08 11:45] MED LIST changes: -CLOZ100 PO; +CLOZ100T32 PO; +DIVA-80 PO; -DIVA500T52 PO
[2020-03-08] MEDS ORDERED: DIVA-80 PO (12:16)
[2020-03-08] MEDS ORDERED: RISP2TAB23 PO (12:16)
[2020-03-08] MEDS ORDERED: DOCU-202 PO (12:16)
[2020-03-08] MEDS ORDERED: MECL-98 PO (12:16)
[2020-03-08] MEDS ORDERED: ESCI20TA87 PO (12:16)
[2020-03-08] MEDS ORDERED: LEVE500T53 PO (12:16)
[2020-03-08] MEDS ORDERED: PALI6TAB15 PO (12:16)
[2020-03-08] MEDS ORDERED: BENZ1TAB10 PO (12:16)
[2020-03-08 12:30] LABS: BASOPHILS % (AUTO) 0.2 % (0.0-2.0); EOSINOPHILS % (AUTO) 0 % (1.0-6.0); HEMATOCRIT 38.3 % (36-46); LYMPHOCYTES # (AUTO) 2.7 K/uL (1.0-4.8); LYMPHOCYTES % (AUTO) 39.2 % (22.0-44.0); MEAN CORPUSCULAR HEMOGLOBIN 31.1 pg (26.0-34.0); MEAN CORPUSCULAR HGB CONC 33.9 G/dL (31.0-37.0); MEAN CORPUSCULAR VOLUME 92 fL (80-100); MONOCYTES # (AUTO) 0.6 K/uL (0.1-1.0); NEUTROPHILS # (AUTO) 3.6 K/uL (1.8-7.7); NEUTROPHILS % (AUTO) 51.6 % (40.0-70.0); PLATELET COUNT (AUTO) 283 K/uL (150-450); RED BLOOD CELL COUNT(AUTO) 4.17 MIL/uL (4.00-5.20); RED CELL DISTRIBUTION WIDTH 13.7 % (11.5-14.5)
[2020-03-08 12:48] LABS: ANION GAP 7 mmol/L (8-16); CALCIUM, TOTAL 8.9 mg/dL (8.8-10.5); CARBON DIOXIDE 29 mmol/L (22-29); CHLORIDE 105 mmol/L (98-107); CREATININE 1.16 mg/dL (0.60-1.30); GLOMERULAR FILTR. RATE CALC 50 mL/min (>60); GLUCOSE,RANDOM 91 mg/dL (70-110); POTASSIUM 4.4 mmol/L (3.5-5.1); SODIUM SERUM 141 mmol/L (136-145); UREA NITROGEN, BLOOD 20 mg/dL (7-18)
[2020-03-08 12:54] LABS: PROTHROMBIN TIME 10.6 SEC (9.4-11.6)
[2020-03-08 13:01] LABS: ALANINE AMINOTRANSFERASE 24 U/L (12-78); ALBUMIN 3.4 g/dL (3.4-5.0); ALKALINE PHOSPHATASE 90 U/L (46-116); ASPARTATE AMINOTRANSFERASE 12 U/L (15-37); BILIRUBIN,TOTAL 0.3 mg/dL (0.1-1.0); HCG,QUANTITATIVE < 1 mIU/mL (0-6); TOTAL PROTEIN, SERUM 7.1 g/dL (6.4-8.2)
[2020-03-08 14:03] VITALS: BP 122/62
== END 2020-03-08 14:15 | disposition home or self-care (01) ==
LOC: EMS 11:46
DX: R07.9 Chest pain, unspecified (principal); F31.9 Bipolar disorder, unspecified; E78.00 Pure hypercholesterolemia, unspecified
CPT/HCPCS: 93005